=== PATIENT | female | born 1960 | race Caucasian/White ===

== ENCOUNTER → 2016-06-26 | Outpatient (CLI) | payer BC | LOC: MC.RAD 11:13 | DX: Z12.31 Encounter for screening mammogram for malignant neoplasm of breast (principal) ==

== ENCOUNTER → 2016-11-28 | Outpatient (CLI) | payer BC | LOC: COL.RAD 14:49 | DX: D25.9 Leiomyoma of uterus, unspecified (principal) ==

== ENCOUNTER → 2017-05-01 | Outpatient (CLI) | payer BC | LOC: COL.RAD 10:21 | DX: J98.6 Disorders of diaphragm (principal); R93.8 Abnormal findings on diagnostic imaging of other specified body structures; Z90.49 Acquired absence of other specified parts of digestive tract | CPT/HCPCS: Q9967 ==

== ENCOUNTER 2017-05-13 12:49 | Day surgery (SDC) | payer BC ==
[2017-05-13] VITALS (11 sets, daily range): BP systolic 94–141; BP diastolic 49–79; PULSE 62–84; TEMP 97.8–98.1
[~2017-05-13] VITALS: Ht 165.1 cm; Wt 132.9 kg
[~2017-05-13 12:49] MED LIST: MOTRIN 800800 MG/TAB PO; PERCOCET 325 MG1 TA2 PO
[2017-05-13] MEDS ORDERED: TIROSINT112 MC1 PO (13:54)
[2017-05-13] MEDS ORDERED: SINGULAIR 110 MG/TAB PO (13:54)
[2017-05-13] MEDS ORDERED: LIPITOR 10MG10 MG PO (13:54)
[2017-05-13] MEDS ORDERED: BENICAR 20MG TA20 MG PO (13:55)
[2017-05-14 03:00] VITALS: BP 100/66; PULSE 77; TEMP 97.7
[2017-05-14 07:15] VITALS: BP 94/59; PULSE 85; TEMP 98.4
[2017-05-14 11:50] VITALS: BP 101/57; PULSE 84; TEMP 98.1
== END 2017-05-14 16:20 | disposition home or self-care (01) ==
LOC: SDCO 12:49 → OB 19:00 → SDCO 05-14 16:20
DX: D25.9 Leiomyoma of uterus, unspecified (principal); N73.6 Female pelvic peritoneal adhesions (postinfective); I10 Essential (primary) hypertension; E05.00 Thyrotoxicosis with diffuse goiter without thyrotoxic crisis or storm; E78.00 Pure hypercholesterolemia, unspecified; E66.01 Morbid (severe) obesity due to excess calories; F40.240 Claustrophobia; K21.9 Gastro-esophageal reflux disease without esophagitis; G47.33 Obstructive sleep apnea (adult) (pediatric); Z68.42 Body mass index [BMI] 45.0-49.9, adult; Z90.49 Acquired absence of other specified parts of digestive tract; Z83.71 Family history of colonic polyps; Z82.49 Family history of ischemic heart disease and other diseases of the circulatory system
CPT/HCPCS: OP; A4314; A9284; J0690; J1100; J1885; J2270; J2310; J2405; J2704; J2710; J3010; J7120; Q9968

== ENCOUNTER → 2018-06-20 | Outpatient (CLI) | payer BC ==
[~2018-06-20] MED LIST changes: +BENICAR 20MG TA20 MG PO; +LIPITOR 10MG10 MG PO; +SINGULAIR 110 MG/TAB PO; +TIROSINT112 MC1 PO
== END ==
LOC: MC.RAD 11:16
DX: Z12.31 Encounter for screening mammogram for malignant neoplasm of breast (principal)

== ENCOUNTER → 2019-07-16 | Outpatient (CLI) | payer BC | LOC: MC.RAD 11:00 | DX: Z12.31 Encounter for screening mammogram for malignant neoplasm of breast (principal) ==

== ENCOUNTER → 2020-08-04 | Outpatient (CLI) | payer BC | LOC: MC.RAD 07-21 13:30 | DX: Z12.31 Encounter for screening mammogram for malignant neoplasm of breast (principal) ==

== ENCOUNTER → 2021-08-14 | Outpatient (CLI) | payer BC | LOC: MC.RAD 14:07 | DX: Z12.31 Encounter for screening mammogram for malignant neoplasm of breast (principal) ==

== ENCOUNTER 2022-07-28 18:39 | Emergency (ER) | payer BC ==
[~2022-07-28] VITALS: Ht 165.1 cm; Wt 140.0 kg
[2022-07-28 18:43] VITALS: TEMP 98
[2022-07-28 20:00] VITALS: BP 134/72; PULSE 80
== END 2022-07-28 20:02 | disposition home or self-care (01) ==
LOC: COL.ER 18:39
DX: H53.8 Other visual disturbances (principal)

== ENCOUNTER → 2022-08-16 | Outpatient (CLI) | payer BC | LOC: COL.RAD 13:06 | DX: H53.9 Unspecified visual disturbance (principal); R55 Syncope and collapse ==